=== PATIENT | female | born 1990 | race Caucasian/White ===

== ENCOUNTER 2022-09-14 18:51 | Emergency (ER) | payer OTHER, SELFPAY ==
[2022-09-14 18:58] VITALS: BP 111/74; PULSE 94; RESP 16; TEMP 36.9; O2SAT 100
[2022-09-14 19:04] VITALS: BP 111/74; PULSE 94; RESP 16; TEMP 36.9; O2SAT 100
--- NOTE | 2022-09-14 19:04 | ED.FEMALEGU ---
HPI - Female Genitourinary General Chief complaint: Urogenital-Female Stated complaint: uti complaint Time Seen by Provider: 09/14/22 19:04 Source: patient, RN notes reviewed and old records reviewed Mode of arrival: ambulatory Limitations: no limitations History of Present Illness HPI Narrative: 32-year-old female presents to the [facility] with the use urinary, frequency, burning for 2 hours. Denies any fevers, abdominal pain, back pain. Denies any nausea or vomiting Has taken azo Onset (ago): hour(s) (2) Related Data Allergies Allergy/AdvReac Type Severity Reaction Status Date / Time naproxen Allergy Unknown Swelling Unverified 09/14/22 19:03 Review of Systems Review of Systems: All systems reviewed & are unremarkable except as noted in HPI and below Constitutional: Constitutional: Reports no additional constitutional complaints Eyes: Eyes: Reports no additional eye complaints ENT: Reports system reviewed and no additional complaints, except as documented Cardiovascular: Cardiovascular: Reports no additional cardiovascular complaints, Denies chest pain and Denies dyspnea Respiratory: Respiratory: Reports no additional respiratory complaints, Denies chest congestion, Denies cough and Denies dyspnea Gastrointestinal: Gastrointestinal: Reports no additional gastrointestinal complaints, Denies abdominal pain, Denies nausea and Denies vomiting Genitourinary: Genitourinary: Reports as per HPI Musculoskeletal: Musculoskeletal: Reports no additional musculoskeletal complaints Integumentary/Breasts: Skin/Breast: Reports system reviewed and no additional complaints, except as docu Neurologic: Reports system reviewed and no additional complaints, except as documented Psychiatric: Psychiatric: Reports no additional psychiatric complaints Allergic/Immunologic: Allergic/Immunologic: Reports no additional allergic/immunologic complaints PMFSH Comments At the time of my signature, I reviewed and agree with the nursing past medical, surgical, social, and family history. There is no relevant family history pertinent to the patient complaint. Exam Const: General: cooperative, healthy appearing, comfortable, no acute distress, well developed, alert and well nourished Nutritional Appearance: well nourished Orientation/consciousness: patient oriented x3 Limitations: no limitations HENMT: Head: normal to inspection Ears: hearing grossly normal bilaterally and external ears normal Face/Nose/Sinus: Normal external nose present, Normal nares present, Normal nasal mucous membranes and turbinates present and normal facial exam Face and sinus: normal facial exam Mouth: Yes lip normal and Yes moist mucous membranes Eyes: General: appearance normal, both eyes and all related structures Alignment and Position: alignment normal Periorbital: periorbital findings normal Conjunctivae: conjunctivae normal Pupils: Equal, round and reactive pupils present EOM: EOMs intact bilaterally Neck: Neck: normal visual inspection, full ROM, no lymphadenopathy and no meningeal signs Chest: Chest palpation & inspection: normal inspection of the chest Resp: Effort & Inspection: normal respiratory effort and able to speak in complete sentences Auscultation: clear to auscultation bilaterally, no crackles, no rales, no rhonchi and no wheezes Cardio: Rate: regular rate Rhythm: regular rhythm Back/Spine/Pelvis: Cervical Spine: cervical ROM normal Thoracic/Lumbar Spine: No thoracic spinal tenderness Skin: General skin exam: normal color and no rashes or lesions noted Lesions: no lesions Rashes: no rashes Wounds: no wounds Neuro: General: patient oriented x3, gait normal, tone normal, moves all extremities and no meningeal signs Cranial nerves: Yes Equal, round and reactive pupils present Cognition (Neuro): normal cognition Speech: normal speech Gait exam (Neuro): Normal gait present Extrem: General: normal to inspection, full ROM, capillary ref
== END 2022-09-14 19:16 | disposition home or self-care (01) ==
PROVIDERS: Emergency Provider Nurse Practitioner; PCP Family Medicine Adolescent Medicine
DX: N39.0 Urinary tract infection, site not specified (principal)
CPT/HCPCS: 81003; 87086; 99213; G0463

== ENCOUNTER 2025-03-21 09:40 | Outpatient (CLI) | payer BC, SELFPAY | END 2025-03-21 09:41 | disposition home or self-care (01) | LOC: ANHLAB 09:40 | PROVIDERS: PCP Family Medicine Adolescent Medicine; Visit Provider Obstetrics & Gynecology | DX: O20.0 Threatened abortion (principal); Z3A.00 Weeks of gestation of pregnancy not specified | CPT/HCPCS: 36415; 84144; 84702 ==

== ENCOUNTER 2025-03-28 00:34 | Day surgery (SDC) | payer BC, SELFPAY ==
[2025-03-27 08:13] VITALS: BMI 22.6
--- NOTE | 2025-03-27 08:19 | SUR.PREOP ---
[facility] has started construction of its new state of the art ER which will open Spring 2026. With this, we anticipate parking may be a challenge for some our surgical patients and families. Parking spaces are limited but are available for all Surgical, obstetrics, and ER patients sharing this lot. If you arrive and find you are having a hard time finding a parking space, please note that we understand the challenges, please drive around the hospital and park near Hospital Entrance 1. When you enter this entrance, you can ask a volunteer to direct or take you back to the surgical waiting area to check in. We appreciate everyone?s understanding of these expected challenges while we build for your future. Report to the Outpatient Waiting Room, entrance under the green pavilion located off [address], at time 12:00p.m on date 03/28/2025. Planned Procedure Time: 2:00p.m..? Time changes happen often and if your time is changed the preop area will call you the afternoon before. - You and your visitor will be asked to self-screen and do not enter if you have any COVID symptoms. Please call surgeon if you need to reschedule. - A mask is optional within the hospital at this time. Patients may have clear liquids (water, carbonated beverages, clear teas, apple juice) until 3 hours prior to surgery with a maximum of 20 ounces. - No food from midnight until time of surgery and no smoking, or chewing tobacco (or any form of nicotine). No chewing gum, candy or mints. Take only the following medications with a SIP of water on the morning of surgery: None DO NOT STOP ANY OF YOUR OTHER PRESCRIPTION MEDICATIONS PRIOR TO SURGERY EXCEPT THE FOLLOWING Hold all vitamins and supplements for 3 days per anesthesiologist. Medications to discontinue per physician Vitamins and Supplements Date to take last dose 03/27/2025 Please no make-up, nail vietnamese, hairspray, perfume, deodorant, or body powder the day of surgery.? No jewelry (including any body piercings) or valuables the day of surgery, leave them at home.? Please take a shower or bath the night before, or the morning of, surgery with an antibacterial soap.? Wear comfortable, loose fitting clothing.? Children are encouraged to wear pajamas. - Jewelry must be removed prior to entering the operating room.? Rings and piercings that are not removed may be cut off. - The hospital will not accept responsibility for valuables.? - Please leave all valuables, including medications, at home the day of surgery. If you are going home after surgery, a licensed wrecking car driver must drive you home.? - NO public transportation without another adult if you receive anesthesia. - We recommend that an adult stay with you for 24 hours following discharge. - We also recommend that you do not drive, make important decision, drink alcoholic beverages, or take any drugs that were not prescribed by your health care provider for at least 24 hours after your discharge time. Follow any additional instructions given to you from your surgeon. Telephone instructions given to La Whittaker and asked if any additional questions and then verbalized understanding. Patient advised to call surgeon office or pre surgery nurse liaison [phone] if any additional questions.
--- NOTE | 2025-03-28 00:02 | PM.IMHP ---
H&P: HPI History of Present Illness Date/Time: 03/28/25 00:02 Chief Complaint: Miscarriage Narrative: 34 y/o with LMP 01/08/25. Ultrasound exam shows a gestational sac, but no embryo. Quantitative bHCG was 10,000. Missed SAB was diagnosed. She is interested in surgical management. Review of Systems Review of Systems: All systems reviewed & are unremarkable except as noted in HPI and below PMFSH Family History Family History Mother Thyroid cancer Grandparent Lung cancer Social History Social History Smoking status: Never smoker Alcohol intake: current Alcohol use details: few drinks a few times per month Substance use: never Living arrangements: with family Additional living arrangements comments: fiancee and three kids Occupation/Education: occupation Additional occupation/education comments: works at [employer], [employer] Spiritual care concerns: No Meds Home Medications and Allergies Home Medications ?Medication ?Instructions ?Recorded ?Confirmed ?Type docosahexaenoic acid 200 mg 200 mg PO DAILY 03/12/25 03/27/25 History capsule ( DHA) Allergies Allergy/AdvReac Type Severity Reaction Status Date / Time naproxen Allergy Unknown Swelling Verified 03/27/25 08:12 Exam Const: Orientation/consciousness: patient oriented x3 Other: Well-developed, well-nourished female in no acute distress. Neck: Thyroid: thyroid normal Lymphatic: no lymphadenopathy noted (in neck, axilla or inguinal nodes) Resp: Effort & Inspection: normal respiratory effort Auscultation: clear to auscultation bilaterally Cardio: Rate: regular rate Rhythm: regular rhythm Heart sounds: S1 normal heart sound present and S2 normal heart sound present GI: Other: ABD: Soft, nontender, nondistended. No guarding or rebound tenderness. No hepatosplenomegaly. : General: Yes no CVA tenderness Other: Deferred to the OR Back/Spine/Pelvis: Back: no CVA tenderness Skin: General skin exam: normal color and no rashes or lesions noted Neuro: General: patient oriented x3 Extrem: Other: Extremities: nontender with no edema Psych: Mental Status: mental status grossly normal Affect: normal affect Assessment and Plan Assessment and plan (1) Missed : Code(s): O02.1 - Missed Status: Acute Assessment and Plan: A: Missed SAB. P: We discussed expectant as well as surgical management options, and she prefers the latter. Specifically, I offered her dilation and suction curettage. She understands risks of surgery to include risks of anesthesia, risks of pain, infection, bleeding, blood products, thromboembolic phenomena and damage to adjacent structures such as bowel, bladder, ureters, blood vessels and nerves. She understands all these risks and elects to proceed with surgery.
[2025-03-28 13:21] VITALS: BP 99/68; PULSE 94; TEMP 37; O2SAT 100; BMI 22.8
[2025-03-28] MEDS: ACETAMINOPHEN 500 MG TABLET 1000 MG PO (13:25)
[2025-03-28] MEDS: LACTATED RINGERS 1,000 ML 30 ML IV CONT (13:25)
--- NOTE | 2025-03-28 14:06 | WPDANESEPPF ---
Anes - Initial Pre Proc Eval Procedure: Operation Date: 03/28/25 14:00 Proposed Procedures p Suction Dilation and Curettage - Marlon Martinez MD Date/Time: 03/28/25 14:06 Surgeon: Marlon Martinez MD Pre Op Diagnosis: missed ab Patient Data Age: 34 Gender: F Height: 1.63 m Weight: 60.4 kg Last Vital Signs Temp 37.0 C 03/28/25 13:21 Pulse 94 03/28/25 13:21 BP 99/68 L 03/28/25 13:21 Pulse Ox 100 03/28/25 13:21 O2 Del Method Room Air 03/28/25 13:21 Allergies Allergy/AdvReac Type Severity Reaction Status Date / Time naproxen Allergy Unknown Swelling Verified 03/27/25 08:12 Home Medications ?Medication ?Instructions ?Recorded ?Confirmed ?Type docosahexaenoic acid 200 mg 200 mg PO DAILY 03/12/25 03/27/25 History capsule ( DHA) Patient hx anesthesia problems: none Family hx anesthesia problems: none Results Review: All pre-operative results and documents have been reviewed as part of the pre-operative evaluation. PENDING SALE TO [facility] Past Medical History Medical History (Updated 03/28/25 @ 14:06 by Roderick Medina MD) Missed Family History Family History Mother Thyroid cancer Grandparent Lung cancer Social History Social History Smoking status: Never smoker Alcohol intake: current Alcohol use details: few drinks a few times per month Substance use: never Living arrangements: with family Additional living arrangements comments: fiancee and three kids Occupation/Education: occupation Additional occupation/education comments: works at [employer], [employer] Spiritual care concerns: No Anes - Eval Final PreProcedure Day of Procedure 03/28/25 14:06 Patient weight: normal Heart: regular rate and rhythm Lungs: clear to auscultation Airway: Mallampati scale class II Neurological: alert and oriented Last oral intake: >/= 8 hours ASA classification: II Emergent: no Anesthetic plan: proceed Anesthesia type and monitoring: general GIVS and standard monitoring Results Review: All pre-operative results and documents have been reviewed as part of the pre-operative evaluation. Informed Consent: The patient's anesthetic plan and its attendant risks and benefits were discussed with the patient/family/POA. Questions were solicited and answers provided to the satisfaction of the patient/family/POA.
--- NOTE | 2025-03-28 14:17 | WPDHPUPDATE1 ---
History and Physical Update Update Date/Time: 03/28/25 14:17 History and Physical has been reviewed, including an updated exam of the patient. There are NO changes in the patient's condition. Risks, benefits, and alternatives have been discussed and questions answered. Patient agrees to proceed with procedure.
[2025-03-28] MEDS: LIDOCAINE 1% LOCAL INJ 10 ML VIAL INFILTRATE (14:36)
--- NOTE | 2025-03-28 14:42 | S_PTH ---
PATIENT: La HARRELL LOC: [facility]#:[id number] AGE/SX: 34/F ROOM: RE03/28/[address]: Marlon Martinez MD : 1990 BED: DIS: 03/28/2025 SPEC #: [id number] RECD: 03/29/25 07:59 STATUS: BEATA REQ #: [id number] IVONE: 03/28/25 14:[address]: Marlon Martinez DEPT: [facility] Surgical RECD BY: Andra Lucas ENTERED: 03/29/25 07:59 SP TYPE: Surgical OTHR DR: Michael Billy MD Tissues: A - Products of Conception Procedures: Hematoxylin and Eosin Stain Gross and Microscopic Level 4
--- NOTE | 2025-03-28 14:46 | W.PM.PROC2 ---
Procedure Note - Detailed Date of Procedure 03/28/25 Pre-op Diagnosis Missed SAB Post-op Diagnosis Same Procedure Performed Dilation and suction curettage Surgeon Marlon Martinez MD Anesthesia MAC and Local (1% lidocaine) Findings Products of conception are noted Description of Procedure The patient was taken to the operating room where she was prepared and draped in the usual sterile fashion in the dorsal lithotomy position. The bladder was drained with a red rubber catheter. A sterile speculum was placed into the vagina. The anterior lip of the cervix was grasped with a single-tooth tenaculum. Ten mL of 1% lidocaine was administered in a paracervical block. The cervix was gently dilated using Hegar dilators until an 8mm dilator could be passed. The 8 mm curved tip suction curette was advanced. Suction curettage was performed and products of conception were aspirated. Sharp curettage was then performed until a good uterine cry was noted. A final pass with the suction curette was made. The tenaculum was removed. Hemostasis was excellent. Sponge, lap, needle and instrument counts were correct. The patient was taken to the recovery room in stable condition. I was present and scrubbed for the entire procedure. Estimated Blood Loss 50 Drains No Packing No Pathology Yes (Endometrial curettings) Complications None Condition Stable Disposition PACU [facility] Billing Surgery - Charge Forward: Surgery Billing
[2025-03-28 14:48] VITALS: BP 85/48; PULSE 65; RESP 14
[2025-03-28 15:15] VITALS: BP 105/70; PULSE 67
[2025-03-28 15:45] VITALS: BP 81/64; PULSE 65
== END 2025-03-28 15:55 | disposition home or self-care (01) ==
PROVIDERS: PCP Family Medicine Adolescent Medicine; Visit Provider Obstetrics & Gynecology
PROC: (CPT 59820; principal; 2025-03-28 14:00)
DX: O02.1 Missed abortion (principal); G89.18 Other acute postprocedural pain; Z80.8 Family history of malignant neoplasm of other organs or systems; Z80.1 Family history of malignant neoplasm of trachea, bronchus and lung
CPT/HCPCS: 59820; 36415; 85461; 86850; 86900; 86901; 88305; A9270; J1100; J2003; J2250; J2405; J2704; J3010; J7120